=== PATIENT | male | born 1965 | race Caucasian/White ===

== ENCOUNTER 2020-05-03 14:06 | Inpatient (IN) | payer BC ==
[~2020-05-03] VITALS: Ht 175.3 cm; Wt 87.5 kg
[2020-05-03 14:30] VITALS: BP 131/69
[2020-05-03] MEDS ORDERED: METFORMIN HCL500 M3 PO (14:34)
[2020-05-03] MEDS ORDERED: GLIPIZIDE 10 MG10 MG PO (14:34)
[2020-05-03] MEDS ORDERED: ALLOPURINOL 30300 M1 PO (14:34)
[2020-05-03] MEDS ORDERED: TRULICITY0.75 MG/0. (14:34)
[2020-05-03 15:08] LABS: BE 0.7 mmol/L (-2 to +3); PCO2 34.1 mmHg (35.0-45.0); PO2 93.5 mmHg (75.0-100.0); pH 7.464 (7.340-7.450)
[2020-05-03 15:15] LABS: ABSOLUTE BASOPHILS 0.1 thou/uL (0.0-0.2); ABSOLUTE EOSINOPHILS 0.1 thou/uL (0.0-0.7); ABSOLUTE LYMPHOCYTES 1.1 thou/uL (0.8-5.3); ABSOLUTE NEUTROPHILS 9.2 thou/uL (1.6-8.1); BASOPHILS 1.2 %; HEMATOCRIT 36.8 % (42.0-52.0); HEMOGLOBIN 12.2 gm/dL (14.0-18.0); LYMPHOCYTES 9.8 %; MCH 30.5 pg (26.0-34.0); MCHC 33.1 g/dL (28.0-37.0); MONOCYTES 8.5 %; MPV 8.4 fl. (7.2-11.1); NUCLEATED RBCS 0 /100WBC; PLATELET COUNT* 386 thou/uL (150-400); POLYS 79.5 %; RDW-CV 15.2 % (10.5-14.5); WBC 11.6 thou/uL (4.0-11.0)
[2020-05-03 15:37] LABS: APTT 26.8 Seconds (25.0-31.3); INR 1.2
[2020-05-03 15:39] LABS: CALCIUM 8.4 mg/dL (8.5-10.1); CREATININE 1.1 mg/dL (0.6-1.3)
[2020-05-03 15:40] LABS: ALBUMIN 2.5 g/dL (3.4-5.0); TOTAL BILIRUBIN 0.7 mg/dL (<0.1-1.0); TOTAL PROTEIN 8.1 g/dL (6.4-8.2)
[2020-05-03 15:42] LABS: INFLUENZA A ANTIGEN Negative (Negative); INFLUENZA B ANTIGEN Negative (Negative)
[2020-05-03 21:44] VITALS: BP 142/83
[2020-05-03 21:47] VITALS: BP 150/76
[2020-05-04] VITALS (9 sets, daily range): BP systolic 125–145; BP diastolic 50–91
--- NOTE | 2020-05-04 05:11 | NUR ---
PATIENT ARRIVED ON THE UNIT AT 2145. ALERT AND ORIENTED TIMES FOUR. PLACED ON O2 4L VIA NC AT APPROX 0100. PATIENTS O2 SATURATION LEVEL 97-98% ON THIS. NO COMPLAINTS OF PAIN OR DISCOMFORT NOTED. BUSINESS PLANNING ANALYST COMPLETED CHARTED.
[2020-05-04] MEDS ORDERED: LIPITOR 20 MG T20 M1 PO (11:02)
[2020-05-04 13:19] LABS: ABSOLUTE BASOPHILS 0.1 thou/uL (0.0-0.2); ABSOLUTE LYMPHOCYTES 0.8 thou/uL (0.8-5.3); ABSOLUTE MONOCYTES 0.8 thou/uL (0.0-1.2); ABSOLUTE NEUTROPHILS 9.6 thou/uL (1.6-8.1); HEMATOCRIT 31.8 % (42.0-52.0); HEMOGLOBIN 10.4 gm/dL (14.0-18.0); LYMPHOCYTES 6.7 %; MCH 30.4 pg (26.0-34.0); MCHC 32.8 g/dL (28.0-37.0); MCV 92.7 fL (80.0-100.0); MONOCYTES 7.3 %; MPV 8.3 fl. (7.2-11.1); NUCLEATED RBCS 0 /100WBC; PLATELET COUNT* 368 thou/uL (150-400); RBC 3.43 mil/uL (4.50-6.00); RDW-CV 14.8 % (10.5-14.5); WBC 11.3 thou/uL (4.0-11.0)
[2020-05-04 13:31] LABS: ALBUMIN 2.3 g/dL (3.4-5.0); CALCIUM 8.3 mg/dL (8.5-10.1); MAGNESIUM 2.5 mg/dL (1.8-2.4); PHOSPHORUS* 2.3 mg/dL (2.5-4.9); TOTAL BILIRUBIN 0.5 mg/dL (<0.1-1.0); TOTAL PROTEIN 7.2 g/dL (6.4-8.2)
[2020-05-04 13:32] LABS: POTASSIUM 4.2 mmol/L (3.5-5.1)
--- NOTE | 2020-05-04 13:43 | EKG ---
[place] [address] ELECTROCARDIOGRAM REPORT Name: DEVIN KINGSLEY Room: [address] IN ..#: [id number] Admission: 05/03/20 Attend Phys: Irasema Hagan, Discharge: Date of : 65 Date of Service: 05/03/20 1427 Report #: [id number] THIS REPORT FOR: //name// [facility] ED Test Date: 2020-05-03 Test Time: 14:27:14 Pat Name: DEVIN KINGSLEY Department: Room: [facility] Gender: M Director Of Payroll: miko : 1965 Requested By: Azalea Gupta Order Number: [id number] MD: Edgar Medina Measurements Intervals [place] Rate: 123 P: 56 WV: 135 QRS: -56 QRSD: 97 T: 57 QT: 320 QTc: 458 Interpretive Statements Sinus tachycardia Left axis deviation Abnormal R-wave progression, late transition Nonspecific T abnormalities, anterior leads Baseline wander in lead(s) V4 No previous ECG available for comparison Electronically Signed On 05-04-2020 13:43:42 CDT by Edgar Medina [email or web address] <ELECTRONICALLY SIGNED> By: Edgar Medina MD, FAC 05/04/20 1343 1427 1427 Edgar Medina MD, [facility] /EPI
--- NOTE | 2020-05-04 15:02 | NUR ---
ICU rounds: Moving to room 200, needs bipap. DVT, will need Eliquis at ma, CM to check cost. Pt covid positive, received info from nurse, no contact info listed. Pt resides at home alone. Independent. No DME. CM to attempt complete assessment with Pt once he moves to the tele floor via phone.
--- NOTE | 2020-05-04 18:11 | NUR ---
PT RESTING IN BED THROUGHOUT SHIFT. UP TO BSC INDEPENDENTLY. PT TACHYPNEIC AND DESATS WITH ACTIVITY. RECOVERS QUICKLY. 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 BREATHING BETTER SINCE LASIX THIS AFTERNOON. TOLERATING PO WELL. O2@12L NC. SATS IN MID 90S. STACH ON ON MONITOR. VOIDING WELL.
--- NOTE | 2020-05-04 18:18 | NUR ---
REPORT TO HIMANSHU GAY ON
--- NOTE | 2020-05-04 19:02 | NUR ---
REPORT RECEIVED FROM SELENE GAY. PT BROUGHT TO FLOOR AND MADE COMFORTABLE.
[2020-05-05] VITALS: BP 140/87
[2020-05-05 04:00] VITALS: BP 145/82
[2020-05-05 05:01] LABS: ABSOLUTE MONOCYTES 0.9 thou/uL (0.0-1.2); ABSOLUTE NEUTROPHILS 10.3 thou/uL (1.6-8.1); BASOPHILS 0.2 %; HEMATOCRIT 33.5 % (42.0-52.0); HEMOGLOBIN 10.8 gm/dL (14.0-18.0); LYMPHOCYTES 8.4 %; MCH 29.9 pg (26.0-34.0); MCHC 32.3 g/dL (28.0-37.0); MCV 92.5 fL (80.0-100.0); MONOCYTES 7.5 %; MPV 8.8 fl. (7.2-11.1); NUCLEATED RBCS 0 /100WBC; PLATELET COUNT* 420 thou/uL (150-400); POLYS 83.9 %; RBC 3.62 mil/uL (4.50-6.00); RDW-CV 14.8 % (10.5-14.5); WBC 12.3 thou/uL (4.0-11.0)
[2020-05-05 05:09] LABS: ALBUMIN 2.7 g/dL (3.4-5.0); CALCIUM 8.6 mg/dL (8.5-10.1); CREATININE 1.1 mg/dL (0.6-1.3); MAGNESIUM 2.4 mg/dL (1.8-2.4); POTASSIUM 4.7 mmol/L (3.5-5.1); TOTAL BILIRUBIN 0.4 mg/dL (<0.1-1.0); TOTAL PROTEIN 7.9 g/dL (6.4-8.2)
[2020-05-05 05:12] LABS: PREALBUMIN 16.2 mg/dL (18.0-35.7)
--- NOTE | 2020-05-05 05:15 | NUR ---
PT ALERT ORIENTED. UP AD ARTHUR. PT ON [address] FOX CALLED TO UNIT AND ORDER BIPAP AND LASIX IVP. PT ON CONTINUOUS BIPAP. TELEMETRY SHOWS SR/[facility]
[2020-05-05 08:33] VITALS: BP 140/72
--- NOTE | 2020-05-05 12:00 | NUR ---
Covid positive. On bipap. IVABX.
[2020-05-05 12:59] VITALS: BP 200/82
[2020-05-05 16:37] VITALS: BP 121/67
--- NOTE | 2020-05-05 17:39 | NUR ---
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
[2020-05-05 20:00] VITALS: BP 141/75
[2020-05-06] VITALS: BP 137/84
[2020-05-06 02:06] LABS: GLYCOHEMOGLOBIN (HGB A1C) 7.2 % (4.8-5.6)
[2020-05-06 04:00] VITALS: BP 146/93
--- NOTE | 2020-05-06 04:04 | NUR ---
ASSUMED PT CARE AT APPROX 1930. PT IS AWAKE AND ORIENTED X4, FORGETFUL AT TIMES. 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 PT DENIES PAIN/DISCOMFORT. PT IS NOT IN RESPIRATORY DISTRESS, NO DESATURATIONS NOTED ON 10L OF O2/HFC. NO ACUTE CHANGES THROUGHOUT THIS SHIFT. CALL LIGHT WITHIN REACH. HOURLY ROUNDING DONE FOT PT SAFETY. FALL PRECAUTIONS IN PLACE.
[2020-05-06 05:50] LABS: ALBUMIN 2.7 g/dL (3.4-5.0); CREATININE 1.1 mg/dL (0.6-1.3); TOTAL BILIRUBIN 0.4 mg/dL (<0.1-1.0); TOTAL PROTEIN 8.2 g/dL (6.4-8.2)
[2020-05-06 05:51] LABS: PREALBUMIN 19.8 mg/dL (18.0-35.7)
[2020-05-06 05:54] LABS: CALCIUM 8.5 mg/dL (8.5-10.1)
[2020-05-06 05:56] LABS: ABSOLUTE LYMPHOCYTES 1.3 thou/uL (0.8-5.3); ABSOLUTE MONOCYTES 1.1 thou/uL (0.0-1.2); ABSOLUTE NEUTROPHILS 10.7 thou/uL (1.6-8.1); BASOPHILS 0.1 %; HEMATOCRIT 35.9 % (42.0-52.0); HEMOGLOBIN 11.5 gm/dL (14.0-18.0); LYMPHOCYTES 10.2 %; MCHC 31.9 g/dL (28.0-37.0); MCV 93.9 fL (80.0-100.0); MONOCYTES 8.1 %; MPV 8.6 fl. (7.2-11.1); NUCLEATED RBCS 0 /100WBC; PLATELET COUNT* 466 thou/uL (150-400); POLYS 81.6 %; RBC 3.83 mil/uL (4.50-6.00); RDW-CV 15.3 % (10.5-14.5); WBC 13.1 thou/uL (4.0-11.0)
[2020-05-06 08:00] VITALS: BP 160/68
[2020-05-06 11:35] VITALS: BP 150/90
--- NOTE | 2020-05-06 15:56 | NUR ---
Day 2 of Remdisivir. 5L o2, will need ex ox if continues to require oxygen. Covid positive.
[2020-05-06 16:12] VITALS: BP 149/92
--- NOTE | 2020-05-06 18:39 | NUR ---
PATIENT RESTING INBED. 5L PER NASAL CANULA. UP AD ARTHUR IN ROOM. VSS. BIPAP AT HS. PATIENT STATES THAT HE FEELS MUCH BETTER TODAY.
[2020-05-06 20:00] VITALS: BP 138/84
[2020-05-07] VITALS: BP 106/67
[2020-05-07 04:00] VITALS: BP 130/70
--- NOTE | 2020-05-07 05:38 | NUR ---
ASSUMED PT CARE AT APPROX 1930. PT IS AWAKE AND ORIENTED X4, FORGETFUL AT TIMES. PT IS TRACING SR ON THE RUG RENOVATOR. PT DENIES PAIN/DISCOMFORT. PT IS NOT IN RESPIRATORY DISTRESS, NO DESATURATIONS NOTED ON 5L OF O2/HFC. PT STILL GETS SHORT OF AIR WITH ACTIVITY. PT TOLERATED THE BIPAP AT HS. NO ACUTE CHANGES THIS SHIFT. CALL LIGHT WITHIN REACH. HOURLY ROUNDING DONE FOR PT SAFETY. ENHANCED COVID PRECAUTIONS IN PLACE.
[2020-05-07 05:44] LABS: ABSOLUTE LYMPHOCYTES 1.3 thou/uL (0.8-5.3); ABSOLUTE MONOCYTES 0.9 thou/uL (0.0-1.2); ABSOLUTE NEUTROPHILS 9.4 thou/uL (1.6-8.1); BASOPHILS 0.2 %; EOSINOPHILS 0.1 %; HEMATOCRIT 37.6 % (42.0-52.0); HEMOGLOBIN 12.3 gm/dL (14.0-18.0); LYMPHOCYTES 10.8 %; MCH 30.4 pg (26.0-34.0); MCHC 32.7 g/dL (28.0-37.0); MONOCYTES 7.4 %; MPV 8.1 fl. (7.2-11.1); NUCLEATED RBCS 0 /100WBC; PLATELET COUNT* 488 thou/uL (150-400); POLYS 81.5 %; RBC 4.05 mil/uL (4.50-6.00); WBC 11.6 thou/uL (4.0-11.0)
[2020-05-07 05:55] LABS: PREALBUMIN 23.2 mg/dL (18.0-35.7)
[2020-05-07 06:25] LABS: ALBUMIN 2.7 g/dL (3.4-5.0); CALCIUM 8.9 mg/dL (8.5-10.1); CREATININE 1.1 mg/dL (0.6-1.3); MAGNESIUM 2.5 mg/dL (1.8-2.4); TOTAL BILIRUBIN 0.5 mg/dL (<0.1-1.0); TOTAL PROTEIN 7.9 g/dL (6.4-8.2)
[2020-05-07 08:00] VITALS: BP 121/85
[2020-05-07 11:47] VITALS: BP 115/74
--- NOTE | 2020-05-07 15:21 | NUR ---
ASSUMED CARE OF PATIENT THIS AM AT 0730. PATIENT IS ALERT AND ORIENTED X 4. HE DENIES PAIN TODAY. PATIENT STATED HIS SOA IS LESS TODAY. TELE SHOWS NSR. IV ANTIBIOTICS AND STERIODS CONTINUED. BLOOS SUGARS MONITORED AND CONTROLLED. PATIENT IS STILL HAVING SOFT TO LIQIUD STOOLS. PATIENT IS PROGRESSING TOWARDS GOALS. WILL CONTINUE TO MONITOR.
[2020-05-07 15:55] VITALS: BP 98/64
[2020-05-07 20:00] VITALS: BP 138/84
[2020-05-08] VITALS: BP 103/63
--- NOTE | 2020-05-08 03:09 | NUR ---
ASSUMED PT CARE AT APPROX 1930. PT IS AWAKE AND ORIENTED X4. PT IS TRACING SR ON THE JIG BUILDER. PT IS NOT IN RESPIRATORY DISTRESS, NO DESATURATIONS NOTED. NO ACUTE CHANGES THROUGHOUT THIS SHIFT. CALL LIGHT WITHIN REACH. HOURLY ROUNDING DONE.
[2020-05-08 04:00] VITALS: BP 97/68
[2020-05-08 05:31] LABS: ABSOLUTE LYMPHOCYTES 1.4 thou/uL (0.8-5.3); ABSOLUTE MONOCYTES 0.8 thou/uL (0.0-1.2); ABSOLUTE NEUTROPHILS 11.5 thou/uL (1.6-8.1); BASOPHILS 0.2 %; EOSINOPHILS 0.1 %; HEMATOCRIT 41.5 % (42.0-52.0); HEMOGLOBIN 13.6 gm/dL (14.0-18.0); LYMPHOCYTES 10.3 %; MCH 30.4 pg (26.0-34.0); MCHC 32.8 g/dL (28.0-37.0); MCV 92.5 fL (80.0-100.0); MONOCYTES 6.1 %; MPV 8.3 fl. (7.2-11.1); NUCLEATED RBCS 0 /100WBC; POLYS 83.3 %; RBC 4.49 mil/uL (4.50-6.00); WBC 13.8 thou/uL (4.0-11.0)
[2020-05-08 06:00] LABS: CALCIUM 9.1 mg/dL (8.5-10.1); CREATININE 1.2 mg/dL (0.6-1.3); TOTAL BILIRUBIN 0.6 mg/dL (<0.1-1.0); TOTAL PROTEIN 8.3 g/dL (6.4-8.2)
[2020-05-08 06:05] LABS: PLATELET COUNT* 582 thou/uL (150-400)
[2020-05-08 10:00] VITALS: BP 98/65
[2020-05-08 12:00] VITALS: BP 98/58
--- NOTE | 2020-05-08 17:52 | NUR ---
PT HAD GOOD DAY, STARTED ON 7L HI FLOW AND WEANED TO 3L. HE DID HAVE INCREASED OXYGEN DEMAND GOING FROM 100-91 PERCENT AFTER COUGHING FIT SO I PUT HIM UP TO 4L AND SAT IMPROVED TO 94. PT STATES COUGH IS PRODUCTIVE WITH WHITE PHLEGM AND HE IS GETTING QUITE A BIT UP. HE IS HAVING TACHYCARDIA WITH ANY EXERTION STANDING TO BSC BUT RECOVERS QUICKLY. LUNGS DIMINSHED ABD SOFT WITH LAST BM YESTERDAY. BP HAS BEEN TO THE SOFT SIDE WITH 90s/60s BUT PT DENIES DIZZINES OR ANY OTHER SYMMPTOMS. HE IS AFEBRILE.
[2020-05-08 20:00] VITALS: BP 108/67
[2020-05-09] VITALS: BP 125/76
--- NOTE | 2020-05-09 01:31 | NUR ---
ALERT ORIENTED X 4. UP AD ARTHUR TO BSC. O2 4 LITERS NC DAY. BIPAP HS. PRODUCTIVE COUGH CLEAR SPUTUM. TELEMETRY SHOWS SR. DENIES PAIN, WCTM
[2020-05-09 04:00] VITALS: BP 123/75
[2020-05-09 05:21] LABS: ABSOLUTE LYMPHOCYTES 1.4 thou/uL (0.8-5.3); ABSOLUTE MONOCYTES 0.8 thou/uL (0.0-1.2); ABSOLUTE NEUTROPHILS 10.7 thou/uL (1.6-8.1); BASOPHILS 0.1 %; HEMATOCRIT 40.9 % (42.0-52.0); HEMOGLOBIN 13.4 gm/dL (14.0-18.0); LYMPHOCYTES 10.8 %; MCH 30.1 pg (26.0-34.0); MCHC 32.8 g/dL (28.0-37.0); MPV 8.2 fl. (7.2-11.1); NUCLEATED RBCS 0 /100WBC; POLYS 83.1 %; RBC 4.45 mil/uL (4.50-6.00); RDW-CV 15.1 % (10.5-14.5); WBC 12.9 thou/uL (4.0-11.0)
[2020-05-09 05:23] LABS: PLATELET COUNT* 500 thou/uL (150-400)
[2020-05-09 06:59] LABS: ALBUMIN 2.9 g/dL (3.4-5.0); CALCIUM 8.8 mg/dL (8.5-10.1); POTASSIUM 4.7 mmol/L (3.5-5.1); TOTAL BILIRUBIN 0.6 mg/dL (<0.1-1.0); TOTAL PROTEIN 7.7 g/dL (6.4-8.2)
[2020-05-09 08:05] VITALS: BP 114/66
[2020-05-09 12:00] VITALS: BP 133/74
[2020-05-09 16:30] VITALS: BP 133/74
--- NOTE | 2020-05-09 18:08 | NUR ---
PT A&OX4 VSS. PT REMAINS ON COVID PRECAUTIONS R/T + RESULT. PT IS ACCUCHECK, SLIDING SCALE INSULIN ADMINISTERED DIRECTED. PT UP AD ARTHUR TO BSC. PT REMAINS CONTINENT OF B/B. PT SINUS ON MONITOR. DX OF LLE DVT. PT DENIES PAIN, NO SWELLING OBSERVED. IV TO LAC DC'D R/T PT C/O DISCOMFORT. IV PLACED TO LFA BY ZULY GAY. LINE IS PATENT, DRESSING C/D/I. PT UP TO BATHE THIS EVENING PRIOR TO SUPPER. PT REMAINS ON 2L 02 BY NC PER RT. BIPAP DC'D WELL NEBS PER PULMONOLOGY. PT TO BE MOVED TO DIFF TELE ROOM NEG PRESSURE NO LONGER INDICATED. PT RESTING IN ROOM WITH CALL LIGHT IN REACH. WILL CONTINUE TO MONITOR.
[2020-05-09 20:00] VITALS: BP 121/58
[2020-05-10] VITALS: BP 97/62
--- NOTE | 2020-05-10 02:58 | NUR ---
PT ALERT ORIENTED. UP AD ARTHUR IN ROOM. TELEMETRY SHOWS SR. DENIES PAIN. O2 AT 2 LITERS NC. CONTINUOUS PULSE OX IN ROOM. O2 SATS IN THE MID TO UPPER 90S. WCTM
[2020-05-10 04:00] VITALS: BP 106/74
--- NOTE | 2020-05-10 06:15 | NUR ---
PT SOA WITH ACTIVITY. O2 SATS DROP BUT COMES UP FAIRLY QUICKLY.
[2020-05-10 07:11] LABS: HEMATOCRIT 43.2 % (42.0-52.0); HEMOGLOBIN 14.1 gm/dL (14.0-18.0); MCH 30.1 pg (26.0-34.0); MCHC 32.7 g/dL (28.0-37.0); MCV 92.2 fL (80.0-100.0); MPV 8.2 fl. (7.2-11.1); NUCLEATED RBCS 0 /100WBC; PLATELET COUNT* 487 thou/uL (150-400); RBC 4.69 mil/uL (4.50-6.00); RDW-CV 14.9 % (10.5-14.5); WBC 15.3 thou/uL (4.0-11.0)
[2020-05-10 07:20] LABS: CREATININE 1.1 mg/dL (0.6-1.3)
[2020-05-10 08:17] LABS: ABSOLUTE BASOPHILS 0.3 thou/uL (0.0-0.2); ABSOLUTE LYMPHOCYTES 3.5 thou/uL (0.8-5.3); ABSOLUTE MONOCYTES 0.6 thou/uL (0.0-1.2); ABSOLUTE NEUTROPHILS 10.9 thou/uL (1.6-8.1); PLATELET ESTIMATE ADEQUATE
[2020-05-10 08:26] VITALS: BP 103/53
--- NOTE | 2020-05-10 09:00 | NUR ---
PT IS ALERT AND ORIENTED ON 2L AK SATS 94-97 PLAN TO DC TODAY WITH O2 IF NEEDED DENIES ANY PAIN UP AD ARTHUR COVID POSITIVE WILL SELF QUARANTINE AT HOME NO CONCERNS AT THIS TIME OR NEEDS CALL LIGHT IN REACH
[2020-05-10] MEDS ORDERED: HUMALOG100 UNIT/1 SUBQ (10:20)
[2020-05-10] MEDS ORDERED: ELIQUIS5 MG PO (10:20)
[2020-05-10] MEDS ORDERED: NEXIUM40 MG PO (10:20)
[2020-05-10] MEDS ORDERED: VENTOLIN HFA 1818 GM INH (10:20)
[2020-05-10] MEDS ORDERED: DEXAMETHASONE1 MG PO (10:23)
[2020-05-10] MEDS ORDERED: DOXYCYCLINE 10100 MG PO (10:23)
--- NOTE | 2020-05-10 10:59 | NUR ---
PRIMETME ROUNDS: PT D/C TODAY TO HOME. AWAITING RT FOR REST AND EXERCISE TEST. PT DOCTOR WANTED CM TO ASK PT IF HE WANTED HH. PT DECLINED HH.
[2020-05-10 11:35] VITALS: BP 103/53
[2020-05-10 12:05] VITALS: BP 103/53
[2020-05-10 13:13] VITALS: BP 103/53
--- NOTE | 2020-05-10 14:08 | NUR ---
cm faxed FS, H&P, Sat/Exercise and script Azucena Cherry @ [phone]. Azucena confirmed receipt.
--- NOTE | 2020-05-11 12:59 | CON ---
[address] [address] CONSULTATION Name: DEVIN KINGSLEY Room: [address] IN M.R.#: [id number] Admission: 05/03/20 Attend Phys: Irasema Hagan MD Discharge: 05/10/20 Date of : 65 Report #: [id number] THIS REPORT FOR: //name// cc: Alvarado Solano MD, Anthony MD ~ DATE OF SERVICE: 05/04/2020 CONSULT REQUESTED BY: Dr. Abhishek Hinds. INDICATION FOR CONSULTATION: COVID-19. HISTORY OF PRESENT ILLNESS: A 55-year-old gentleman with past medical history includes a history of diabetes. The patient, however, is a lifetime nonsmoker and does not have a previous history of cardiac or respiratory disease. His body mass index, however, is elevated to 34 and it is possible that he has underlying previously undiagnosed obstructive sleep apnea. The patient was now diagnosed with COVID-19 on 04/22, he was trying to stay at home and recover; however, yesterday, he noticed that his symptoms have progressively worsened significantly. He was having leg pain. He was having fever, chills and increasing fatigue and increasing shortness of breath and therefore came over to the Emergency Room. He was also coughing significantly and did report having brought up some sputum yesterday. The patient was noted to have a DVT in his left femoral vein on venous Dopplers. CT chest shows extensive infiltrates; however, no pulmonary emboli were identified. He also has some mediastinal lymphadenopathy. The patient still has significant shortness of breath at rest right now. He did receive BiPAP earlier notes that currently is not in a negative pressure room in there and is not on BiPAP. He has had variable amount of oxygen needs from 2-8 liters. He still is significantly tachycardic at times. Heart rate at times up to 110-120, compared with yesterday he does report feeling better. The patient earlier did report having some chest pain with respiration. He does report that he has been having headaches and has had decreased appetite, has been having chills. REVIEW OF SYSTEMS: For 14 points is negative except as mentioned above. PAST MEDICAL HISTORY: Diabetes, gout, obesity, body mass index 34. SOCIAL HISTORY: Lifetime nonsmoker. No known history of heavy alcohol use or illegal drug use. CURRENT MEDICATIONS: List in [facility] reviewed. HOME MEDICATIONS: List in [facility] [place] [address] CONSULTATION Name: DEVIN KINGSLEY Room: [address]#: [id number] Admission: 05/03/20 Attend Phys: Irasema Hagan MD Discharge: 05/10/20 Date of : 65 Report #: [id number] FAMILY HISTORY: No pertinent family history. ALLERGIES: PENICILLINS. PHYSICAL EXAMINATION: GENERAL: He does still appear to be short of breath at rest. VITAL SIGNS: This morning he has needed oxygen between 2 and 8 liters to maintain O2 saturation in the low 90s. Blood pressure is 145/68, respiratory rate remains high around 25-26. His heart rate is variable, was down to 84 earlier and then up to 120. He does have a low-grade fever of 37.7. HEENT: Head is normocephalic, atraumatic. NECK: Does not show raised JVP, asymmetry, mass or lymph nodes. CHEST: Symmetrical expansion on inspection and palpation. On auscultation, breath sounds are bilaterally equal, but decreased. Expirations are prolonged. There are no added sounds. HEART: Regular. There is no murmur. ABDOMEN: Soft and nontender. EXTREMITIES: Lower extremities do show 1+ edema bilaterally, more on the left side than the right. There is some calf tenderness as well. SKIN: Dry and intact. NEUROLOGICAL: Moves all extremities bilaterally equally and spontaneously with no focal deficit identified. LABORATORY DATA: The patient's lab work from yesterday is in [facility]. This was reviewed. CTA Chest: Chest x-ray, venous Dopplers, all from yesterday also in [facility] reviewed. I have ordered repeat studies now, which are pending. ASSESSMENT AND PLAN: Acute respiratory insufficiency secondary to COVID-19. The patient may have underlying obstructive sleep apnea. He likely has also had some bronchospasm and therefore, I will reevaluate this afternoon and see if we can move him over to a negative pressure room where he could be on a BiPAP while asleep and also received nebulizers, note that we currently do not have a negative pressure room available in the ICU. If he appears to be stable enough to be moved out of the ICU we will consider the same this afternoon. COVID-19, I agree with remdesivir and I also agree with steroids as currently ordered. Considering extensive infiltrates as well as persistent shortness of breath. I recommend that we go ahead and proceed with giving him 2 units of convalescent plasma as well. The risks and benefits of convalescent plasma were discussed with the patient and informed consent was obtained. He agreed to proceed. Pulmonary infiltrates likely there is a secondary bacterial infection as well. We will continue with Levaquin. We will broaden antibiotic coverage in case he [facility] [address] [place] [address] CONSULTATION Name: DEVIN KINGSLEY Room: [address]#: [id number] Admission: 05/03/20 Attend Phys: Irasema Hagan MD Discharge: 05/10/20 Date of : 65 Report #: [id number] worsens if possible. Recommend obtaining a sputum culture, recommend obtaining a nasal swab for methicillin-resistant Staphylococcus aureus. Deep vein thrombosis. I agree with Gladys. Recommend treating for 3 months and then repeating venous Dopplers. Fluid overload, on my exam, he appears to be fluid overloaded I discontinued his IV fluids. We will see the labs we have ordered now as well as a chest x-ray. Since we will also be giving him plasma I will perhaps be inclined to give him some Lasix. Hypokalemia. Repeat potassium is including labs are ordered. I went ahead and placed him on the electrolyte replacement protocol. Possible underlying obstructive sleep apnea. May benefit from further evaluation later. Gastrointestinal prophylaxis. He is on Protonix. CT stable difficile prophylaxis, Florastor. Diabetes. Defer management to the primary service. The patient is critically ill at this time. Total time spent providing critical care to this patient today is 43 minutes. <ELECTRONICALLY SIGNED> By: Babak Murcia MD 05/11/20 1259 1255 [id number] Murcia MD /nt
== END 2020-05-10 17:30 | disposition home or self-care (01) | DRG 871 ==
LOC: M.ERS 14:06 → M.ICU 17:34 → M.TBA-ER 17:34 → M.ICU 21:45 → M.2W 05-04 18:55
PROVIDERS: Internal Medicine; Internal Medicine Critical Care Medicine; Nurse Practitioner Family; ADMIT Internal Medicine; ATTEND Internal Medicine
PROC: XW13325 Transfusion of Convalescent Plasma (Nonautologous) into Peripheral Vein, Percutaneous Approach, New Technology Group 5 (ICD-10-PCS; principal; 2020-05-04)
PROC: XW033E5 Introduction of Remdesivir Anti-infective into Peripheral Vein, Percutaneous Approach, New Technology Group 5 (ICD-10-PCS; 2020-05-04)
PROC: 5A09357 Assistance with Respiratory Ventilation, Less than 24 Consecutive Hours, Continuous Positive Airway Pressure (ICD-10-PCS; 2020-05-05)
PROC: 5A09357 Assistance with Respiratory Ventilation, Less than 24 Consecutive Hours, Continuous Positive Airway Pressure (ICD-10-PCS; 2020-05-06)
PROC: 5A09357 Assistance with Respiratory Ventilation, Less than 24 Consecutive Hours, Continuous Positive Airway Pressure (ICD-10-PCS; 2020-05-07)
PROC: 5A09357 Assistance with Respiratory Ventilation, Less than 24 Consecutive Hours, Continuous Positive Airway Pressure (ICD-10-PCS; 2020-05-08)
DX: A41.89 Other specified sepsis (principal); U07.1 COVID-19; J12.89 Other viral pneumonia; J96.01 Acute respiratory failure with hypoxia; I82.432 Acute embolism and thrombosis of left popliteal vein; I82.412 Acute embolism and thrombosis of left femoral vein; E87.70 Fluid overload, unspecified; E11.9 Type 2 diabetes mellitus without complications; M10.9 Gout, unspecified; E87.6 Hypokalemia; Z79.899 Other long term (current) drug therapy; Z79.84 Long term (current) use of oral hypoglycemic drugs; Z88.0 Allergy status to penicillin

== ENCOUNTER → 2020-06-21 | Outpatient (CLI) | payer BC ==
[~2020-06-21] MED LIST: ALLOPURINOL 30300 M1 PO; DEXAMETHASONE1 MG PO; DOXYCYCLINE 10100 MG PO; ELIQUIS5 MG PO; GLIPIZIDE 10 MG10 MG PO; HUMALOG100 UNIT/1 SUBQ; LIPITOR 20 MG T20 M1 PO; METFORMIN HCL500 M3 PO; NEXIUM40 MG PO; TRULICITY0.75 MG/0.; VENTOLIN HFA 1818 GM INH
== END ==
LOC: M.CT 15:37 → M.RAD 15:43
PROVIDERS: ATTEND Internal Medicine Critical Care Medicine
DX: R06.02 Shortness of breath (principal)

== ENCOUNTER → 2020-07-04 | Outpatient (CLI) | payer BC ==
[2020-07-04 10:27] LABS: CREATININE 1.1 mg/dL (0.6-1.3)
== END ==
LOC: M.LAB 09:59
PROVIDERS: ATTEND Internal Medicine Critical Care Medicine
DX: J98.4 Other disorders of lung (principal); R91.8 Other nonspecific abnormal finding of lung field; M25.78 Osteophyte, vertebrae; I82.411 Acute embolism and thrombosis of right femoral vein; U07.1 COVID-19; R59.0 Localized enlarged lymph nodes; Z88.0 Allergy status to penicillin

== ENCOUNTER → 2020-08-03 | Outpatient (CLI) | payer BC | LOC: M.ULTRA 11:00 | PROVIDERS: ATTEND Internal Medicine Critical Care Medicine | DX: I82.411 Acute embolism and thrombosis of right femoral vein (principal) ==

== ENCOUNTER → 2020-09-20 | Outpatient (CLI) | payer BC ==
--- NOTE | 2020-10-05 12:05 | PF ---
[address] [address] PULMONARY FUNCTION REPORT Name: DEVIN KINGSLEY Room: [facility]#: [id number] Admission: 09/20/20 Attend Phys: Babak Murcia MD Discharge: Date of : 65 Report #: [id number] THIS REPORT FOR: cc: Alvarado Solano MD,Alvarado Murcia,Babak ANN ~ DATE OF SERVICE: 09/20/2020 The FEV1/FVC ratio is normal at 84% with an FVC decreased to 73%. The FEV1; however, is normal at 80%. The [id number] is also normal at 102%. After the administration of a bronchodilator, there is no significant increase in any of these values. The total lung capacity is decreased to 64% with a residual volume decreased to 36%. The DLCO as adjusted for hemoglobin is decreased to 53%. IMPRESSION: 1. There is marked restriction with the total lung capacity decreased to 64%, however, the patient's FEV1 postbronchodilator remains within the normal range at 2.91 liters. 2. Mild obstruction if present could be masked by restriction. 3. DLCO as adjusted for hemoglobin is decreased to 53%. <ELECTRONICALLY SIGNED> By: Babak Murcia MD 10/05/20 1205 1350 [id number] Murcia MD /nt
== END ==
LOC: M.PUL 08-09 16:41
PROVIDERS: ATTEND Internal Medicine Critical Care Medicine
DX: G47.10 Hypersomnia, unspecified (principal); R06.02 Shortness of breath; Z88.0 Allergy status to penicillin

== ENCOUNTER → 2020-11-07 | Outpatient (CLI) | payer BC ==
[2020-11-07 09:04] LABS: CREATININE 1.1 mg/dL (0.6-1.3)
[2020-11-08 21:06] LABS: ANA INTERPRETATION Negative (())
== END | disposition home or self-care (01) ==
LOC: M.CT 08-09 16:44 → M.LAB 08:41 → M.CT 09:30
PROVIDERS: ATTEND Internal Medicine Critical Care Medicine
DX: I26.99 Other pulmonary embolism without acute cor pulmonale (principal); J84.9 Interstitial pulmonary disease, unspecified; R91.8 Other nonspecific abnormal finding of lung field; R59.0 Localized enlarged lymph nodes; R06.02 Shortness of breath

== ENCOUNTER → 2020-11-25 | Outpatient (CLI) | payer BC | LOC: M.LAB 10:00 | PROVIDERS: ATTEND Internal Medicine Critical Care Medicine | DX: I26.99 Other pulmonary embolism without acute cor pulmonale (principal); I82.412 Acute embolism and thrombosis of left femoral vein ==

== ENCOUNTER → 2021-05-11 | Outpatient (CLI) | payer BC ==
[2021-05-11 11:14] LABS: CREATININE 1.1 mg/dL (0.6-1.3)
== END ==
LOC: M.ULTRA 11-25 12:22
PROVIDERS: ATTEND Internal Medicine Critical Care Medicine
DX: I82.412 Acute embolism and thrombosis of left femoral vein (principal); I26.99 Other pulmonary embolism without acute cor pulmonale; I25.10 Atherosclerotic heart disease of native coronary artery without angina pectoris

== ENCOUNTER 2021-06-19 10:12 | Emergency (ER) | payer BC ==
[~2021-06-19] VITALS: Ht 175.3 cm; Wt 103.9 kg
[2021-06-19] MEDS ORDERED: HYDROCODON-ACE1 EAC7 PO (11:20)
[2021-06-19] MEDS ORDERED: MEDROLDOSEPACK PO (11:51)
[2021-06-19 11:56] VITALS: BP 145/95
== END 2021-06-19 11:56 | disposition home or self-care (01) ==
LOC: M.ERS 10:12
DX: M54.42 Lumbago with sciatica, left side (principal); E11.9 Type 2 diabetes mellitus without complications; Z79.899 Other long term (current) drug therapy; Z88.0 Allergy status to penicillin